=== PATIENT | female | born 1960 | race African-American/Black ===

== ENCOUNTER 2019-08-07 22:59 | Emergency (ER) | payer SELFPAY ==
[2019-08-07] MEDS ORDERED: IPRATROPIUM/ALBUTEROL 0.5-2.5 MG/3 ML AMPUL NEB ONE (23:58)
--- NOTE | 2019-08-08 00:11 | ER Document Report ---
ED Medical Screen (RME) - General Chief Complaint: Shortness Of Breath Stated Complaint: DIFFICULTY BREATHING Time Seen by Provider: 08/07/19 23:50 Primary Care Provider: OSMIN TORRES [Primary Care Provider] - Follow up as needed Notes: Patient is a 58-year-old female, brought in by EMS, presents to the emergency department with a chief complaint of shortness of breath. Patient states that she has been short of breath for about the past couple of weeks. She has had some purulent sputum. Patient recently moved down here from [place]. Patient states that she has run out of her medications. Patient has a history of chronic bronchitis. Exam: Diminished breath sounds in bilateral upper lobes. I have greeted and performed a rapid initial assessment of this patient. A comprehensive ED assessment and evaluation of the patient, analysis of test results and completion of medical decision making process will be conducted by an additional ED providers. TRAVEL OUTSIDE OF THE [place] IN LAST 30 DAYS: No - Related Data Allergies/Adverse Reactions: Penicillins Allergy (Verified 08/07/19 23:59) Home Medications: metformin. lisinopril. psych meds Physical Exam - Vital signs Vitals: Temp Pulse Resp BP Pulse Ox 98.0 F 73 18 162/80 H 98 08/07/19 23:15 08/07/19 23:15 08/07/19 23:15 08/07/19 23:15 08/07/19 23:15 Course - Vital Signs Vital signs: Temp Pulse Resp BP Pulse Ox 98.0 F 73 18 162/80 H 98 08/07/19 23:15 08/07/19 23:15 08/07/19 23:15 08/07/19 23:15 08/07/19 23:15 Doctor's Discharge - Discharge Referrals: OSMIN TORRES [Primary Care Provider] - Follow up as needed
[2019-08-08 00:20] LABS: ABSOLUTE EOSINOPHILS # (AUTO) 0.1 10^3/uL (0.0-0.6); ABSOLUTE LYMPHOCYTES (AUTO) 2.2 10^3/uL (0.5-4.7); ABSOLUTE MONOCYTES (AUTO) 0.3 10^3/uL (0.1-1.4); ABSOLUTE NEUT (AUTO) 3.5 10^3/uL (1.7-8.2); BASOPHILS % (AUTO) 0.6 % (0-2); EOSINOPHILS % (AUTO) 1.7 % (0-6); HEMATOCRIT 46.9 % (36.0-47.0); HEMOGLOBIN 16.1 g/dL (12.0-15.5); LYMPHOCYTES % (AUTO) 35.6 % (13-45); MEAN CORPUSCULAR HEMOGLOBIN 29.5 pg (27.0-33.4); MEAN CORPUSCULAR HGB CONC 34.3 g/dL (32.0-36.0); MEAN CORPUSCULAR VOLUME 86 fl (80-97); MONOCYTES % (AUTO) 5.5 % (3-13); PLATELET COUNT 203 10^3/uL (150-450); RED BLOOD COUNT 5.46 10^6/uL (3.72-5.28); RED CELL DISTRIBUTION WIDTH 13.4 % (11.5-14.0); SEGMENTED NEUTROPHILS % (AUTO) 56.6 % (42-78); TOTAL CELLS COUNTED % (AUTO) 100 %; WHITE BLOOD COUNT 6.2 10^3/uL (4.0-10.5)
[2019-08-08 00:35] LABS: ALBUMIN 4.9 g/dL (3.5-5.0); ALKALINE PHOSPHATASE 105 U/L (38-126); ANION GAP 13 (5-19); ASPARTATE AMINO TRANSFERASE 22 U/L (14-36); BILIRUBIN,DIRECT 0.2 mg/dL (0.0-0.4); BILIRUBIN,TOTAL 0.5 mg/dL (0.2-1.3); BLOOD UREA NITROGEN 14 mg/dL (7-20); CALCIUM 10.1 mg/dL (8.4-10.2); CARBON DIOXIDE 29 mmol/L (22-30); CHLORIDE 100 mmol/L (98-107); GLUCOSE 105 mg/dL (75-110); POTASSIUM 3.8 mmol/L (3.6-5.0); TOTAL PROTEIN 8.4 g/dL (6.3-8.2)
--- NOTE | 2019-08-08 00:40 | RADIOLOGY REPORT (SQ) ---
EXAM DESCRIPTION: X-RAY CHEST- TWO VIEWS CLINICAL HISTORY: Shortness of breath COMPARISON: April 24, 2011 TECHNIQUE: 2 views of the chest FINDINGS: There are no discrete air space infiltrates, pneumothoraces or pleural effusions. The pulmonary vascularity is normal. The cardiomediastinal silhouette is normal in size. Small area of sclerosis involving the medial aspect of the right proximal humerus is stable in appearance. IMPRESSION: There are no acute lung parenchymal findings.
[2019-08-08] MEDS ORDERED: PREDNISONE 20 MG TABLET PO ONE (09:09)
[2019-08-08] MEDS ORDERED: ALBUTEROL SULFATE 0.083% NEB 2.5 MG/3 ML AMPUL NEB ONE (09:09)
[2019-08-08] MEDS ORDERED: IPRATROPIUM/ALBUTEROL 0.5-2.5 MG/3 ML AMPUL NEB ONE (09:09)
[2019-08-08] MEDS ORDERED: ALBUTEROL SULFATE HFA (90 MCG/PUFF) 8 GM MDI (1 MDI/ER DISP) IH ONE (09:11)
--- NOTE | 2019-08-08 09:12 | ER Document Report ---
ED General - General Chief Complaint: Shortness Of Breath Stated Complaint: DIFFICULTY BREATHING Time Seen by Provider: 08/07/19 23:50 Primary Care Provider: OSMIN TORRES [NO LOCAL MD] - Follow up as needed Notes: 58-year-old female presents emergency department complaining of shortness of breath and a productive cough for the past several weeks. States that it has not improved with [id number] medications. Has not sought professional medical help. Denies fevers, sweats, chills, dyspnea on exertion or chest pain. Admits COPD and smoking history. TRAVEL OUTSIDE OF THE [place] IN LAST 30 DAYS: No - Related Data Allergies/Adverse Reactions: Penicillins Allergy (Verified 08/07/19 23:59) Home Medications: metformin. lisinopril. psych meds Past Medical History - General Information source: Patient - Social History Smoking Status: Current Every Day Smoker Frequency of alcohol use: Social Drug Abuse: None Family History: Reviewed & Not Pertinent Patient has suicidal ideation: No Patient has homicidal ideation: No - Past Medical History Cardiac Medical History: Reports: Hx Hypertension Endocrine Medical History: Reports: Hx Diabetes Mellitus Type 2 Review of Systems - Review of Systems Constitutional: No symptoms reported EENT: No symptoms reported Cardiovascular: No symptoms reported Respiratory: See HPI -: Yes All other systems reviewed and negative Physical Exam - Vital signs Vitals: Temp Pulse Resp BP Pulse Ox 98.0 F 73 18 162/80 H 98 08/07/19 23:15 08/07/19 23:15 08/07/19 23:15 08/07/19 23:15 08/07/19 23:15 Interpretation: Normal - Notes Notes: GENERAL: Alert, interacts well. No acute distress. HEAD: Normocephalic, atraumatic EYES: Pupils equal, round and reactive to light, extraocular movements intact. ENT: Oral mucosa moist, tongue midline. NECK: Full range of motion, supple, trachea midline. LUNGS: Somewhat tight, mild expiratory wheezing, no respiratory distress, wet cough. HEART: Regular rate and rhythm, no murmurs, gallops, rubs. ABDOMEN: Soft, nontender, nondistended, bowel sounds present in all 4 quadrants. EXTREMITIES: Moves all 4 extremities spontaneously, no edema, radial and dorsalis pedis pulses 2/4 bilaterally. No cyanosis. NEUROLOGICAL: Alert and oriented x3, normal speech. PSYCH: Normal mood, normal affect. SKIN: Warm, Dry, normal turgor, no rashes or lesions noted. Course - Re-evaluation Re-evalutation: 08/08/19 09:09 CBC grossly unremarkable, CMP unremarkable, chest x-ray shows no acute process. Patient does have wheezing, a history of COPD and smoking. Patient will be treated with steroids and albuterol. Given inhaler to go home with. Discharged home. - Vital Signs Vital signs: Temp Pulse Resp BP Pulse Ox 97.9 F 65 17 161/94 H 97 08/08/19 07:36 08/08/19 07:36 08/08/19 08:01 08/08/19 08:01 08/08/19 08:01 - Laboratory Result Diagrams: 08/08/19 00:10 08/08/19 00:10 Laboratory results interpreted by me: 08/08/19 08/08/19 00:10 00:10 RBC 5.46 H Hgb 16.1 H Total Protein 8.4 H Discharge - Discharge Clinical Impression: COPD exacerbation Condition: Stable Disposition: HOME, SELF-CARE Additional Instructions: Bronchitis with Bronchospasm (Wheezing) You have bronchitis with bronchospasm (wheezing). Sometimes people develop wheezing with a chest cold. This occurs either because of an underlying tendency toward asthma or because the virus itself irritates the bronchial tubes. This irritation causes cough, shortness of breath, and wheezing. Emergency treatment of bronchospasm may include adrenaline shots or bronchodilator aerosol. You may feel lightheaded and have a rapid pulse for an hour or two. Rest and get plenty of fluids. At home, we'll treat you with a bronchodilator inhaler. Corticosteroids may be required for some patients. Until you recover, avoid chemical fumes, dusts, pollens, and exercising in very cold or dry air. If you smoke, stop now! Most cases of bronchitis get better without antibiotics. We prescribe antibiotics when we believe bacteria are damaging your airways, or if there's high risk the bronchitis will worsen into pneumonia. Increase your fluid intake. A cool mist humidifier may make your lungs more comfortable. An expectorant (cough medicine that loosens phlegm) can help. Repeated episodes of bronchitis and bronchospasm may result in lung damage -- for example, chronic bronchitis, recurrent pneumonias, or emphysema. If you develop a fever, increased wheezing, chest pain, or severe shortness of breath, you should contact the doctor immediately. Prescriptions: Prednisone [Deltasone 20 mg Tablet] 2 tab PO DAILY 4 Days tablet
[2019-08-08 10:13] VITALS: BP 139/88
== END 2019-08-08 10:10 | disposition home or self-care (01) ==
LOC: ER 22:59
DX: J44.1 Chronic obstructive pulmonary disease with (acute) exacerbation (principal); R06.02 Shortness of breath; R05 Cough; F17.200 Nicotine dependence, unspecified, uncomplicated; I10 Essential (primary) hypertension; E11.9 Type 2 diabetes mellitus without complications
CPT/HCPCS: 94640 ×2; 99285; 36415; 85025; 80053; 71046; J7512; J3490; J7620

== ENCOUNTER 2019-08-26 02:01 | Emergency (ER) | payer SELFPAY ==
--- NOTE | 2019-08-26 05:02 | ER Document Report ---
ED General - General Chief Complaint: Other Stated Complaint: FALL,ABDOMINAL PAIN Time Seen by Provider: 08/26/19 04:45 Primary Care Provider: [facility] [Provider Group] - Follow up in 1 week Notes: Patient is a 58-year-old female that comes by EMS and has multiple complaints. She tells me her biggest concern is she ran out of her medications including lisinopril, metformin, Seroquel, Abilify, Lexapro. She states she is hoping she can have her lisinopril and metformin filled. She states she also randomly fell tonight, she states she is not dizzy, she did not trip, she did not have a headache, and she did not pass out. She states remembers the whole thing, suddenly fell and "hit my belly". She states she threw up afterwards. She states afterwards she felt fine, she has no chest pain, abdominal pain, dizziness, headache, focal numbness or weakness. TRAVEL OUTSIDE OF THE [place] IN LAST 30 DAYS: No - Related Data Allergies/Adverse Reactions: Penicillins Allergy (Verified 08/07/19 23:59) Past Medical History - General Information source: Patient - Social History Smoking Status: Current Every Day Smoker Drug Abuse: Marijuana Lives with: Family Family History: Reviewed & Not Pertinent Patient has suicidal ideation: No Patient has homicidal ideation: No - Past Medical History Cardiac Medical History: Reports: Hx Hypertension Endocrine Medical History: Reports: Hx Diabetes Mellitus Type 2 Surgical Hx: Negative - Immunizations Immunizations up to date: Yes Hx Diphtheria, Pertussis, Tetanus Vaccination: Yes Review of Systems - Review of Systems Constitutional: See HPI EENT: No symptoms reported Cardiovascular: No symptoms reported Respiratory: No symptoms reported Gastrointestinal: See HPI Genitourinary: No symptoms reported Female Genitourinary: No symptoms reported Musculoskeletal: No symptoms reported Skin: No symptoms reported Hematologic/Lymphatic: No symptoms reported Neurological/Psychological: No symptoms reported Physical Exam - Vital signs Vitals: Temp Pulse Resp BP Pulse Ox 99.3 F 71 16 111/85 98 08/26/19 02:07 08/26/19 02:07 08/26/19 02:07 08/26/19 02:07 08/26/19 02:07 - Notes Notes: GENERAL: Alert, interacts well. No acute distress. HEAD: Normocephalic, atraumatic. EYES: Pupils equal, round, and reactive to light. Extraocular movements intact. ENT: Oral mucosa moist, tongue midline. Oropharynx unremarkable. Airway patent. Nares patent, no nasal septal hematoma, TM's intact. NECK: Full range of motion. Supple. Trachea midline. LUNGS: Clear to auscultation bilaterally, no wheezes, rales, or rhonchi. No respiratory distress. No signs of trauma HEART: Regular rate and rhythm. No murmur ABDOMEN: Soft, non-tender. Non-distended. Bowel sounds present in all 4 quadrants. No signs of trauma GENITOURINARY: Deferred EXTREMITIES: Moves all 4 extremities spontaneously. No edema, normal radial and dorsalis pedis pulses bilaterally. No cyanosis. BACK: no cervical, thoracic, lumbar midline tenderness. No saddle anesthesia, normal distal neurovascular exam. Moves all extremities in full range of motion. NEUROLOGICAL: Alert and oriented x3. Normal speech. Cranial nerves II through XII grossly intact. PSYCH: Slightly flat affect, otherwise unremarkable SKIN: Warm, dry, normal turgor. No rashes or lesions noted. Course - Re-evaluation Re-evalutation: Patient has a bizarre history, however she has no signs of trauma anywhere, has a soft benign abdomen without any tenderness, she gets up and ambulates without any difficulty. Patient states that she hit her abdomen and throughout but now she states she feels fine. I did discuss potential imaging to rule out any intra-abdominal pathology because of her reported fall, trauma, and vomiting, however patient declines. Based on her lack of trauma, lack of current symptoms, and completely nontender abdomen I actually feel this is appropriate. Her vital signs are unremarkable. After I evaluated her I asked again how she felt, she states she just feels "weird". Based on her lack of ataxia, lack of any current symptoms, normal neurologic exam, I have low suspicion of intracranial hemorrhage or emergent cause of tonight. Chest x-ray, EKG, CBC, chemistry, troponin unremarkable. On reevaluation patient sleeping, easily aroused, has no current complaints. She denies SI or HI. She is cooperative and oriented although somewhat odd with her mannerisms and descriptions. I discussed the prescriptions for her to have refilled, she states she only wants the lisinopril and the metformin and she will follow-up with primary care referral for the rest of them. She was provided with this. Discussed return precautions. Patient states appreciation and agreement. - Vital Signs Vital signs: Temp Pulse Resp BP Pulse Ox 98.3 F 76 14 145/71 H 69 L 08/26/19 07:45 08/26/19 07:45 08/26/19 07:45 08/26/19 07:45 08/26/19 07:45 - Laboratory Result Diagrams: 08/26/19 05:19 08/26/19 05:19 Laboratory results interpreted by me: 08/26/19 08/26/19 05:19 05:19 Seg Neutrophils % 79.0 H Glucose 138 H - EKG Interpretation by Me Additional EKG results interpreted by me: EKG shows sinus rhythm at a rate of 76, normal axis, no T wave inversions or ST segment changes in consecutive leads. Machine reads as normal Discharge - Discharge Clinical Impression: Has run out of medications, Weakness Fall Qualifiers: Encounter type: initial encounter Qualified Code(s): W19.XXXA - Unspecified fall, initial encounter Condition: Stable Disposition: HOME, SELF-CARE Additional Instructions: Your evaluation does not show any concerning findings at this time. Resume your prescribed medications, follow-up closely with the primary referral listed. Return if you worsen including passing out, returned vomiting, or any other concerning or worsening symptoms. Prescriptions: Metformin HCl [Glucophage 500 mg Tablet] 500 mg PO BID #60 tablet Lisinopril [Prinivil 10 mg Tablet] 10 mg PO DAILY #30 tablet Referrals: [facility] [Provider Group] - Follow up in 1 week
[2019-08-26 05:31] LABS: ABSOLUTE BASOPHILS # (AUTO) 0.1 10^3/uL (0.0-0.2); ABSOLUTE LYMPHOCYTES (AUTO) 1.6 10^3/uL (0.5-4.7); ABSOLUTE MONOCYTES (AUTO) 0.5 10^3/uL (0.1-1.4); ABSOLUTE NEUT (AUTO) 8.2 10^3/uL (1.7-8.2); BASOPHILS % (AUTO) 0.5 % (0-2); EOSINOPHILS % (AUTO) 0.4 % (0-6); HEMATOCRIT 44.1 % (36.0-47.0); HEMOGLOBIN 15.3 g/dL (12.0-15.5); LYMPHOCYTES % (AUTO) 15.7 % (13-45); MEAN CORPUSCULAR HEMOGLOBIN 29.6 pg (27.0-33.4); MEAN CORPUSCULAR HGB CONC 34.8 g/dL (32.0-36.0); MEAN CORPUSCULAR VOLUME 85 fl (80-97); MONOCYTES % (AUTO) 4.4 % (3-13); PLATELET COUNT 169 10^3/uL (150-450); RED BLOOD COUNT 5.18 10^6/uL (3.72-5.28); RED CELL DISTRIBUTION WIDTH 13.3 % (11.5-14.0); TOTAL CELLS COUNTED % (AUTO) 100 %; WHITE BLOOD COUNT 10.4 10^3/uL (4.0-10.5)
[2019-08-26 05:50] LABS: ALBUMIN 4.2 g/dL (3.5-5.0); ALKALINE PHOSPHATASE 105 U/L (38-126); ANION GAP 10 (5-19); ASPARTATE AMINO TRANSFERASE 17 U/L (14-36); BILIRUBIN,DIRECT 0.2 mg/dL (0.0-0.4); BILIRUBIN,TOTAL 0.7 mg/dL (0.2-1.3); BLOOD UREA NITROGEN 15 mg/dL (7-20); CALCIUM 9.7 mg/dL (8.4-10.2); CARBON DIOXIDE 26 mmol/L (22-30); CHLORIDE 102 mmol/L (98-107); GLUCOSE 138 mg/dL (75-110); POTASSIUM 4.1 mmol/L (3.6-5.0); TOTAL PROTEIN 7.3 g/dL (6.3-8.2)
--- NOTE | 2019-08-26 07:08 | RADIOLOGY REPORT (SQ) ---
EXAM DESCRIPTION: XR CHEST 1 VIEW COMPLETED DATE/TME: 08/26/2019 04:59 CLINICAL HISTORY: 58 years Female, weakness, continuous cough COMPARISON:Aug 08 2019 NUMBER OF VIEWS/TECHNIQUE: 1/AP FINDINGS: Increased lung volume, clear parenchyma, normal cardiac silhouette, and intact bony thorax. IMPRESSION: No acute cardiopulmonary findings.
[2019-08-26 07:46] VITALS: BP 145/71
--- NOTE | 2019-08-26 18:35 | EKG REPORT ---
SEVERITY:- NORMAL ECG - SINUS RHYTHM : Confirmed by: Ruthann Bland MD 26-Aug-2019 18:34:58
== END 2019-08-26 07:45 | disposition home or self-care (01) ==
LOC: ER 02:01
DX: Z04.3 Encounter for examination and observation following other accident (principal); Z76.0 Encounter for issue of repeat prescription; I10 Essential (primary) hypertension; E11.9 Type 2 diabetes mellitus without complications; R11.10 Vomiting, unspecified; R53.1 Weakness
CPT/HCPCS: 36415; 71045; 80053; 84484; 85025; 93005; 93010; 99284